=== PATIENT | female | born 1975 | race Caucasian/White ===

== ENCOUNTER 2018-11-22 08:33 | Observation (INO) | payer SELFPAY ==
[~2018-11-22] VITALS: Ht 170.2 cm; Wt 119.0 kg
[2018-11-22] MEDS ORDERED: ASPIRIN 81 MG TABLET CHEW PO ONE (09:00)
[2018-11-22] MEDS ORDERED: ASPIRIN 81 MG TABLET CHEW ONE (09:07)
[2018-11-22 09:28] LABS: BASOPHILS # (AUTO) 0.02 x10^3/uL (0-0.1); BASOPHILS % (AUTO) 0 % (0-1); EOSINOPHILS # (AUTO) 0.12 x10^3/uL (0-0.4); EOSINOPHILS % (AUTO) 1 % (1-7); LYMPHOCYTES # (AUTO) 2.31 x10^3/uL (1-3.4); LYMPHOCYTES % (AUTO) 25 % (22-44); MD NO; MEAN CORPUSCULAR HEMOGLOBIN 32.3 pg (27.0-34.8); MEAN CORPUSCULAR HGB CONC 33.4 g/dL (32.4-35.8); MEAN CORPUSCULAR VOLUME 96.7 fL (80-100); MEAN PLATELET VOLUME 8.3 fL (7.4-10.4); MONOCYTES # (AUTO) 0.43 x10^3/uL (0.2-0.8); MONOCYTES % (AUTO) 5 % (2-9); NEUTROPHILS # (AUTO) 6.51 x10^3/uL (1.8-6.8); NEUTROPHILS % (AUTO) 69 % (42-75); PLATELET COUNT 367 x10^3/uL (130-400); RED BLOOD COUNT 5.27 x10^6/uL (3.82-5.3)
[2018-11-22 09:33] LABS: ALBUMIN 3.6 g/dL (3.4-5.0); ANION GAP 8 mmol/L (5-15); CALCIUM 8.9 mg/dL (8.5-10.1); CHLORIDE 106 mmol/L (98-107); CREATININE 1.08 mg/dL (0.55-1.02)
[2018-11-22 09:37] LABS: TROPONIN I < 0.015 ng/mL (0.000-0.045)
[2018-11-22] MEDS ORDERED: NITROGLYCERIN SINGLE TAB 0.4 MG SL ONE (09:38)
[2018-11-22] MEDS ORDERED: NITROGLYCERIN SINGLE TAB 0.4 MG SL PRN ×2 (10:00)
--- NOTE | 2018-11-22 10:04 | NUR ---
PT REPORT FROM AGNIESZKA RUBIN. PT CARE TO BE ASSUMED. PT SITTING UPRIGHT ON BED, TALKING W/ FAMILY MEMBERS.
[2018-11-22] MEDS ORDERED: OMNIPAQUE 350 MG/ML, 100ML BOTTLE ONE (10:15)
--- NOTE | 2018-11-22 10:15 | NUR ---
PT IN RADIOLOGY
--- NOTE | 2018-11-22 10:20 | NUR ---
PT REPORT TO AGNIESZKA AMOR FOR ROOM 515
[2018-11-22 10:24] LABS: FREE T4 (FREE THYROXINE) 1.02 ng/dL (0.76-1.46); THYROID STIMULATING HORMONE 1.42 mIU/L (0.358-3.740)
--- NOTE | 2018-11-22 10:37 | NUR ---
PT RETURNED FROM RADIOLOGY. A&OX4, RESP EVEN & UNLABORED, SPEECH CLEAR, SKIN WNL, CURRENTLY PAIN-FREE. REPORTS FEELING INTERMITTENT CHEST PRESSURE - POINTS TO LOWER STERNUM/EPIGASTRIC AREA. LAST ORAL INTAKE: 0700. SX STARTED AFTER EATING HOMEMADE BREAKFAST BURRITO & COFFEE. NO MEDS TAKEN FOR SX.
--- NOTE | 2018-11-22 10:39 | NUR ---
HOSPITALIST BS FOR EXAM.
[2018-11-22] MEDS ORDERED: NICOTINE PATCH (10:43)
[2018-11-22 11:23] VITALS: BP 105/74
[2018-11-22 12:25] VITALS: BP 109/77
[2018-11-22] MEDS ORDERED: NITROGLYCERIN 0.4 MG/SPRAY SL PRN (12:30)
[2018-11-22] MEDS ORDERED: NITROGLYCERIN 0.4 MG BOTTLE (25 TABS) SL PRN (12:30)
[2018-11-22] MEDS ORDERED: DOCUSATE 100 MG CAPSULE PO PRN (12:30)
[2018-11-22] MEDS ORDERED: ONDANSETRON ODT 4 MG PO PRN (12:30)
[2018-11-22] MEDS ORDERED: hydrALAzine 20 MG/ML, 1ML IVPush PRN (12:30)
[2018-11-22] MEDS: HEPARIN 5,000 UNITS/ML, 1ML SQ SCH ×2 (12:30→20:30)
[2018-11-22] MEDS ORDERED: LORazepam 2 MG/ML, 1ML IV PRN ×5 (13:00)
[2018-11-22] MEDS ORDERED: LORazepam 0.5MG TABLET PO PRN (13:00)
[2018-11-22] MEDS ORDERED: LORazepam 1MG TABLET PO PRN ×4 (13:00)
[2018-11-22] MEDS: NICOTINE 7 MG/24 HR PATCH.TD24 TD SCH (13:09)
[2018-11-22] MEDS: ACETAMINOPHEN 325 MG TABLET PO PRN (13:09)
[2018-11-22 13:32] LABS: HEMOGLOBIN A1C 5.4 % (4.2-6.3)
[2018-11-22 13:34] LABS: TROPONIN I < 0.015 ng/mL (0.000-0.045)
[2018-11-22 15:15] LABS: HCG UR SG 1.026 (1.003-1.030)
[2018-11-22 15:26] LABS: AMPHETAMINE SCREEN, URINE Negative (Negative); BARBITURATE SCREEN, URINE Negative (Negative); BENZODIAZEPINE SCREEN, URINE Negative (Negative); CANNABINOID SCREEN, URINE Positive (Negative); COCAINE SCREEN, URINE Negative (Negative); METHADONE SCREEN, URINE Negative (Negative); OPIATE SCREEN, URINE Negative (Negative)
[2018-11-22] MEDS: NITROGLYCERIN 0.4 MG BOTTLE (25 TABS) SL PRN ×2 (15:34→17:52)
[2018-11-22 18:01] VITALS: BP 103/68
[2018-11-22 18:31] LABS: TROPONIN I < 0.015 ng/mL (0.000-0.045)
[2018-11-22 19:08] VITALS: BP 112/84
[2018-11-23 00:08] VITALS: BP 97/62
[2018-11-23 00:38] VITALS: BP 97/62
[2018-11-23] MEDS: HEPARIN 5,000 UNITS/ML, 1ML SQ SCH ×2 (04:30→12:37)
[2018-11-23] MEDS: ALUMINUM/MAG/SIMETHICONE 30 ML UDC PO PRN ×2 (04:58→11:04)
[2018-11-23 05:07] LABS: ANION GAP 4 mmol/L (5-15); CALCIUM 8.1 mg/dL (8.5-10.1); CHLORIDE 111 mmol/L (98-107); CHOLESTEROL, TOTAL 179 mg/dL (140-239); CREATININE 0.83 mg/dL (0.55-1.02); TRIGLYCERIDES 115 mg/dL (50-200); VLDL CHOLESTEROL 23 mg/dL (0-25)
[2018-11-23 05:09] LABS: CHOL/HDL RATIO 3.5; HDL CHOL % 28 % (28-40); HDL CHOLESTEROL (DIRECT) 51 mg/dL (40-60); LDL CHOLESTEROL,CALCULATED 105 mg/dL (54-169); LDL/HDL RATIO 2.1 (0.5-3.0)
[2018-11-23 05:10] VITALS: BP 133/93
[2018-11-23 05:31] LABS: BASOPHILS # (AUTO) 0.02 x10^3/uL (0-0.1); BASOPHILS % (AUTO) 0 % (0-1); EOSINOPHILS # (AUTO) 0.14 x10^3/uL (0-0.4); EOSINOPHILS % (AUTO) 1 % (1-7); LYMPHOCYTES # (AUTO) 2.48 x10^3/uL (1-3.4); LYMPHOCYTES % (AUTO) 26 % (22-44); MD NO; MEAN CORPUSCULAR HEMOGLOBIN 32.7 pg (27.0-34.8); MEAN CORPUSCULAR HGB CONC 33.8 g/dL (32.4-35.8); MEAN CORPUSCULAR VOLUME 96.8 fL (80-100); MEAN PLATELET VOLUME 8.1 fL (7.4-10.4); MONOCYTES # (AUTO) 0.76 x10^3/uL (0.2-0.8); MONOCYTES % (AUTO) 8 % (2-9); NEUTROPHILS # (AUTO) 6.21 x10^3/uL (1.8-6.8); NEUTROPHILS % (AUTO) 65 % (42-75); PLATELET COUNT 328 x10^3/uL (130-400); RED BLOOD COUNT 4.77 x10^6/uL (3.82-5.3); RED CELL DISTRIBUTION WIDTH 14.1 % (9.6-15.2)
[2018-11-23 07:15] VITALS: BP 105/76
[2018-11-23] MEDS ORDERED: REGADENOSON 0.4 MG/5 ML SYRINGE ONE (08:16)
[2018-11-23] MEDS: ACETAMINOPHEN 325 MG TABLET PO PRN (11:04)
[2018-11-23 13:30] VITALS: BP 109/80
[2018-11-23] MEDS: NICOTINE 7 MG/24 HR PATCH.TD24 TD SCH (13:37)
== END 2018-11-23 14:46 | disposition home or self-care (01) ==
LOC: ED 09:23 → INTOOBSV 09:57 → EDIP 09:57 → 5SO 11:14
PROVIDERS: ADMIT Internal Medicine; ATTEND Internal Medicine
DX: R07.9 Chest pain, unspecified (principal); K21.9 Gastro-esophageal reflux disease without esophagitis; F17.200 Nicotine dependence, unspecified, uncomplicated; F12.90 Cannabis use, unspecified, uncomplicated; J41.0 Simple chronic bronchitis; R00.0 Tachycardia, unspecified; Z79.899 Other long term (current) drug therapy
CPT/HCPCS: 36415; 71045; 71275; 78452; 80048; 80061; 80307; 81025; 82040; 83036; 84439; 84443; 84484; 85025; 85379; 93005; 93017; 99284; A9502; C9898; G0378; J2785; Q9967